=== PATIENT | female | born 1970 | race Caucasian/White ===

== ENCOUNTER 2016-10-06 18:45 | Emergency (ER) | payer MEDICARE, MEDICAID ==
[2016-10-06] MEDS ORDERED: KETOROLAC 60 MG/2 ML VIAL ONE (19:34)
--- NOTE | 2016-10-06 19:36 | ED Physician Documentation ---
History of Present Illness - Stated complaint Stated Complaint: back px,stomach px, leg px - Chief complaint Chief Complaint: General - History obtained from History obtained from: Patient - History of Present Illness Timing: Other (This is a 46-year-old woman who presents with bilateral flank pain and left leg pain for the last 5 days. She also reports insomnia, depression, no suicidal plan. She thinks it might be the invokana that is causing this, she's been on that for a couple of months. No other new medications. She denies fevers, chills. She has been losing weight but is intentional. She had chest pain the other night which is now gone. No vomiting or changes in bowel movements.) Review of Systems Constitutional: reports: Myalgias. denies: Fever, Chills Eyes: denies: Loss of vision, Decreased vision Ears: denies: Loss of hearing, Ear pain Nose: denies: Rhinorrhea / runny nose, Congestion Throat: denies: Sore throat Cardiac: denies: Palpitations, Pedal edema, Calf pain GI: denies: Nausea, Vomiting, Diarrhea PD PAST MEDICAL HISTORY - Past Medical History Cardiovascular: High cholesterol Respiratory: Asthma Neuro: Peripheral neuropathy Endocrine/Autoimmune: Type 2 diabetes Psych: Depression, Bipolar disorder Musculoskeletal: Other - Past Surgical History Past Surgical History: Yes General: Cholecystectomy /[employer]: section, Tubal ligation Derm: Skin cancer surgery - Present Medications Home Medications: Ambulatory Orders Medication Instructions Recorded Confirmed Cinnamon 200 mg PO DAILY 11/09/15 10/06/16 Gabapentin [Neurontin] 600 mg PO TID 11/09/15 10/06/16 Metformin HCl 1,000 mg PO TID 11/09/15 10/06/16 Canagliflozin [Invokana] 300 mg PO DAILY 10/06/16 10/06/16 Ketorolac [Toradol] 10 mg PO Q6H PRN #15 tablet 10/06/16 Simvastatin 40 mg PO DAILY 10/06/16 10/06/16 - Allergies Allergies/Adverse Reactions: Allergies Allergy/AdvReac Type Severity Reaction Status Date / Time peanut Allergy Anaphylaxis Verified 11/09/15 16:35 - Social History Does the pt smoke?: No Smoking Status: Former smoker Does the pt drink ETOH?: No Does the pt have substance abuse?: No - Immunizations Immunizations are current?: Yes PD ED PE NORMAL - Vitals Vital signs reviewed: Yes - General General: Alert and oriented X 3, No acute distress - HEENT HEENT: PERRL, EOMI - Neck Neck: Supple, no meningeal sign, No bony TTP - Cardiac Cardiac: RRR, No murmur - Respiratory Respiratory: No respiratory distress, Clear bilaterally - Abdomen Abdomen: Normal bowel sounds, Soft, Non tender - Back Back: Other (Some muscular tenderness of both flanks but no abdominal tenderness.The patient has equal and normal patellar and Achilles reflexes bilaterally. Normal sensation in all areas of the legs. Patient denies saddle anesthesia. Normal strength in flexion and extension at the ankles, knees and flexion of the hips.) - Derm Derm: Normal color, Warm and dry - Extremities Extremities: No deformity, No tenderness to palpate - Neuro Neuro: Alert and oriented X 3, Normal speech - Psych Psych: Normal mood, Normal affect Results - Vitals Vitals: Vital Signs - 24 hr 10/06/16 10/06/16 10/06/16 18:55 20:12 21:03 Temperature 36.4 C L 37.2 C 37.0 C Heart Rate 82 69 73 Respiratory 18 15 14 Rate Blood Pressure 124/83 H 103/61 127/73 O2 Saturation 100 96 99 Oxygen O2 Source Room air - Labs Labs: Laboratory Tests 10/06/16 10/06/16 10/06/16 20:04 20:04 20:26 WBC 8.9 RBC 5.02 Hgb 12.0 Hct 38.6 MCV 76.9 L MCH 23.9 L MCHC 31.0 L RDW 16.8 H Plt Count 233 MPV 9.6 Neut # 5.0 Lymph # 3.0 [place] # 0.6 Eos # 0.2 Baso # 0.1 Absolute Nucleated RBC 0.00 Nucleated RBCs 0.0 Sodium 139 Potassium 3.9 Chloride 103 Carbon Dioxide 27 Anion Gap 9.0 BUN 17 Creatinine 0.7 Estimated GFR (MDRD) 91 Glucose 169 H Calcium 9.0 Total Bilirubin 0.5 AST 19 ALT 14 Alkaline Phosphatase 23 L Total Creatine Kinase 33 Total Protein 7.6 Albumin 3.9 Globulin 3.7 Albumin/Globulin Ratio 1.1 Lipase 27 Urine Color YELLOW Urine Clarity CLEAR Urine pH 5.0 Ur Specific [place] 1.020 Urine Protein NEGATIVE Urine Glucose (UA) >=1000 H Urine Ketones NEGATIVE Urine Occult Blood TRACE-INTA Urine Nitrite NEGATIVE Urine Bilirubin NEGATIVE Urine Urobilinogen 0.2 (NORMAL) Ur Leukocyte Esterase NEGATIVE Ur Microscopic Review NOT INDICATED Urine Culture Comments NOT INDICATED Urine HCG, Qual NEGATIVE PD MEDICAL DECISION MAKING - ED course ED course: She presents with nonspecific seemingly muscular pain to both flanks and some sciatica-type symptoms on the left. Exam is benign. I suspect that she has muscular pain but she is also depressed without suicidal ideation and advised counseling for this. She felt much better after a Toradol shot. The patient and family were counseled as to the diagnosis and need for followup. I counseled the patient with regard to signs and symptoms that would necessitate an urgent reevaluation in the emergency department. They understand they are welcome to return at any time if worse or if not improving as expected. This document was made in part using voice recognition software. While efforts are made to proofread this document, sound alike and grammatical errors may occur. Departure - Departure Disposition: 01 Home, Self Care Clinical Impression: Myalgia Sciatica Qualifiers: Laterality: left Qualified Code(s): M54.32 - Sciatica, left side Condition: Good Record reviewed to determine appropriate education?: Yes Instructions: ED Sciatica, ED Acute Pain [facility] Prescriptions: Ketorolac [Toradol] 10 mg PO Q6H PRN #15 tablet PRN Reason: Pain Comments: Call your doctor to arrange a follow up appointment. Make the next available appointment. In the interim return anytime if worse or if new symptoms develop. Discharge Date/Time: 10/06/16 21:03
[2016-10-06] MEDS: KETOROLAC 60 MG/2 ML VIAL IM STA (19:41)
[2016-10-06 20:08] LABS: BASOPHILS # (AUTO) 0.1 10^3/uL (0.0-0.1); BASOPHILS % (AUTO) 0.6 %; EOSINOPHILS # (AUTO) 0.2 10^3/uL (0.0-0.7); EOSINOPHILS % (AUTO) 2.2 %; HCT - HEMATOCRIT 38.6 % (37.0-47.0); MEAN CORPUSCULAR HEMOGLOBIN 23.9 pg (27.0-31.0); MEAN CORPUSCULAR VOLUME 76.9 fL (81.0-99.0); MEAN PLATELET VOLUME 9.6 fL (7.9-10.8); MONOCYTES # (AUTO) 0.6 10^3/uL (0.0-1.0); MONOCYTES % (AUTO) 6.6 %; NEUTROPHILS % (AUTO) 56.6 %; RED BLOOD COUNT 5.02 10^6/uL (4.20-5.40); RED CELL DISTRIBUTION WIDTH 16.8 % (12.0-15.0); UNCORRECTED WHITE BLOOD COUNT 8.9 x10^3/uL; WHITE BLOOD COUNT 8.9 x10^3/uL (4.8-10.8)
[2016-10-06 20:18] LABS: ALBUMIN/GLOBULIN RATIO 1.1 (1.0-2.2); BILIRUBIN,TOTAL 0.5 mg/dL (0.2-1.0); CREATININE 0.7 mg/dL (0.4-1.0); POTASSIUM 3.9 mmol/L (3.5-5.0); TOTAL PROTEIN 7.6 g/dL (6.7-8.2)
[2016-10-06 20:41] LABS: BILIRUBIN,URINE NEGATIVE (NEGATIVE)
[2016-10-06 20:42] LABS: HCG UR QUAL NEGATIVE; UA CHARGE (STRIP ONLY) YES; UR CULTURE IF IND NOT INDICATED
[2016-10-06 21:04] VITALS: BP 127/73
== END 2016-10-06 21:03 | disposition home or self-care (01) ==
LOC: ED 18:45
DX: M79.1 Myalgia (principal); M54.32 Sciatica, left side; F32.9 Major depressive disorder, single episode, unspecified; G47.00 Insomnia, unspecified; J45.909 Unspecified asthma, uncomplicated; E11.42 Type 2 diabetes mellitus with diabetic polyneuropathy; Z79.84 Long term (current) use of oral hypoglycemic drugs; Z87.891 Personal history of nicotine dependence
CPT/HCPCS: 36415; 80053; 81001; 81003; 81025; 82550; 83690; 85025; 87086; 96372; 99283; 99284

== ENCOUNTER 2016-12-28 13:03 | Emergency (ER) | payer MEDICARE, MEDICAID ==
[2016-12-28] MEDS ORDERED: KETOROLAC 60 MG/2 ML VIAL IM STA (14:58)
[2016-12-28] MEDS ORDERED: KETOROLAC 60 MG/2 ML VIAL ONE (15:03)
== END 2016-12-28 15:13 | disposition home or self-care (01) ==
DX: M67.442 Ganglion, left hand (principal); M25.512 Pain in left shoulder; E78.00 Pure hypercholesterolemia, unspecified; J45.909 Unspecified asthma, uncomplicated; E11.42 Type 2 diabetes mellitus with diabetic polyneuropathy; Z79.84 Long term (current) use of oral hypoglycemic drugs; Z87.891 Personal history of nicotine dependence

== ENCOUNTER 2017-01-07 17:42 | Outpatient (CLI) | payer MEDICARE, MEDICAID | END 2017-01-07 17:43 | disposition home or self-care (01) | DX: M25.512 Pain in left shoulder (principal) ==

== ENCOUNTER 2017-04-02 10:12 | Emergency (ER) | payer MEDICARE, MEDICAID ==
[2017-04-02 11:30] VITALS: BP 120/86
--- NOTE | 2017-04-02 11:32 | XRAY Preliminary Report ---
Exam: XR Chest 2 View PA/LAT IMPRESSION: Negative 2-view chest radiography. [facility] SITE ID: [id number]
--- NOTE | 2017-04-02 11:35 | XRAY Report ---
EXAM: CHEST RADIOGRAPHY EXAM DATE: 04/02/2017 11:23 AM. CLINICAL HISTORY: Cough x 3 weeks. COMPARISON: None. TECHNIQUE: 2 views. FINDINGS: Lungs/Pleura: No focal opacities evident. No pleural effusion. No pneumothorax. Normal volumes. Mediastinum: Heart and mediastinal contours are unremarkable. Other: Surgical clips right upper quadrant IMPRESSION: Negative 2-view chest radiography. [facility] Referring Provider Line: [phone] SITE ID: [id number]
[2017-04-02] MEDS ORDERED: KETOROLAC 60 MG/2 ML VIAL IM STA (11:41)
[2017-04-02] MEDS ORDERED: DEXAMETHASONE 10 MG/ML VIAL PO STA (11:41)
--- NOTE | 2017-04-02 11:43 | ED Physician Documentation ---
PD HPI URI - Stated complaint Stated Complaint: CHEST COLD - Chief complaint Chief Complaint: Resp - History obtained from History obtained from: Patient, Family - History of Present Illness Timing - onset: How many weeks ago (3) Timing duration: Weeks (3) Timing details: Gradual onset, Still present Associated symptoms: Ear pain, Dry cough. No: Fever, Nasal congestion Improves by: Rest Worsened by: Activity Similar symptoms before: Diagnosis (OM and bronchitis) Recently seen: Other (She is preparring to have shoulder surgery next week.) - Additional information Additional information: 46-year-old female has had a cough for the past 3 weeks. She describes production of a small amount of sputum periodically but mostly a dry cough with some burning in the central chest. She has some pain along the lower ribs as well from coughing paroxysms. She also complains of some pain in her left ear with some muffled hearing. She has not had an exacerbation of her asthma associated with this. She has been doing everything she can to stay in good health as she has an anticipated surgery in 1 week on her left shoulder. Review of Systems Constitutional: denies: Fever Eyes: denies: Decreased vision Ears: reports: Ear pain Nose: reports: Rhinorrhea / runny nose Throat: denies: Sore throat Cardiac: denies: Chest pain / pressure Respiratory: reports: Cough. denies: Wheezing GI: denies: Vomiting PD PAST MEDICAL HISTORY - Past Medical History Past Medical History: Yes Cardiovascular: High cholesterol Respiratory: Asthma Neuro: Peripheral neuropathy Endocrine/Autoimmune: Type 2 diabetes Psych: Depression, Bipolar disorder Musculoskeletal: Other - Past Surgical History Past Surgical History: Yes General: Cholecystectomy, Other /SKI PATROL: section, Tubal ligation Derm: Skin cancer surgery - Present Medications Home Medications: Ambulatory Orders Medication Instructions Recorded Confirmed Gabapentin [Neurontin] 800 mg PO TID 11/09/15 04/02/17 Metformin HCl 1,000 mg PO BID 11/09/15 04/02/17 Canagliflozin [Invokana] 300 mg PO DAILY 10/06/16 04/02/17 Simvastatin 40 mg PO DAILY 10/06/16 04/02/17 Biotin 3,000 mg PO DAILY 12/28/16 04/02/17 Cholecalciferol (Vitamin D3) 5,000 mg PO DAILY 12/28/16 04/02/17 [Vitamin D3] Lamotrigine 25 mg PO DAILY 12/28/16 04/02/17 [place]-3/Dha/Epa/Fish Oil [Fish Oil 1,000 mg PO DAILY 12/28/16 04/02/17 1,000 mg Softgel] Azithromycin [Zithromax] 250 mg PO DAILY #6 tablet 04/02/17 Cyanocobalamin (Vitamin B-12) 1,000 mg PO DAILY 04/02/17 04/02/17 [Vitamin B-12] - Allergies Allergies/Adverse Reactions: Allergies Allergy/AdvReac Type Severity Reaction Status Date / Time peanut Allergy Anaphylaxis Verified 04/02/17 10:27 - Social History Does the pt smoke?: No Smoking Status: Former smoker Does the pt drink ETOH?: No Does the pt have substance abuse?: No - Immunizations Immunizations are current?: Yes - POLST Patient has POLST: No PD ED PE NORMAL - Vitals Vital signs reviewed: Yes (Normal) - General General: No acute distress, Well developed/nourished - HEENT HEENT: Atraumatic, PERRL, EOMI, Other (The left TM is inflamed in the addict with retained landmarks the right TM is not inflamed. The pharynx is with mild inflammation along the left tonsillar pillar.) - Neck Neck: Supple, no meningeal sign, No bony TTP - Cardiac Cardiac: RRR, No murmur - Respiratory Respiratory: No respiratory distress, Clear bilaterally - Abdomen Abdomen: Soft, Non tender - Derm Derm: Normal color, Warm and dry, No rash - Extremities Extremities: No deformity, No edema - Neuro Neuro: Alert and oriented X 3, No motor deficit, No sensory deficit, Normal speech - Psych Psych: Normal mood, Normal affect Results - Vitals Vitals: Vital Signs - 24 hr 04/02/17 04/02/17 10:24 11:29 Temperature 35.7 C L 36.4 C L Heart Rate 81 87 Respiratory 12 18 Rate Blood Pressure 111/78 120/86 H O2 Saturation 98 98 Oxygen O2 Source Room air - Rads (name of study) 2 view chest Radiology: Prelim report reviewed (Impression: Negative two-view chest radiography.), EMP read indepedently, See rad report PD MEDICAL DECISION MAKING - ED course Complexity details: considered differential, d/w patient ED course: 46-year-old female with cough and left ear pain has coughing paroxysms and left shoulder pain she requests a shot of Toradol for her left shoulder pain she requests Dilaudid as well and I have refused to give her the Dilaudid. She did receive the Toradol and we have given her dexamethasone 10 mg orally for treatment of the otitis and I have discussed with her that this will increase her sugars. On examination the. Patient appears to have otitis media in the left ear this does not appear to be affecting her asthma she is placed on a course of azithromycin. Departure - Departure Disposition: 01 Home, Self Care Clinical Impression: Otitis media Qualifiers: Otitis media type: suppurative Laterality: left Chronicity: acute Recurrence: not specified as recurrent Spontaneous tympanic membrane rupture: without spontaneous rupture Qualified Code(s): H66.002 - Acute suppurative otitis media without spontaneous rupture of ear drum, left ear Condition: Stable Instructions: ED Otitis Media Acute Adult Follow-Up: Ema Oshea PA-C [Primary Care Provider] - Prescriptions: Azithromycin [Zithromax] 250 mg PO DAILY #6 tablet
[2017-04-02] MEDS ORDERED: DEXAMETHASONE 10 MG/ML VIAL ONE (11:46)
[2017-04-02] MEDS ORDERED: KETOROLAC 60 MG/2 ML VIAL ONE (11:46)
== END 2017-04-02 12:20 | disposition home or self-care (01) ==
LOC: ED 10:12
DX: H66.002 Acute suppurative otitis media without spontaneous rupture of ear drum, left ear (principal); E78.5 Hyperlipidemia, unspecified; J45.909 Unspecified asthma, uncomplicated; E11.42 Type 2 diabetes mellitus with diabetic polyneuropathy; Z79.84 Long term (current) use of oral hypoglycemic drugs; Z87.891 Personal history of nicotine dependence
CPT/HCPCS: 71020; 96372; 99283

== ENCOUNTER 2017-04-13 11:41 | Emergency (ER) | payer MEDICARE, MEDICAID ==
[2017-04-13] MEDS ORDERED: ALBUTEROL NEB 2.5 MG/3 ML INH STA (12:27)
[2017-04-13] MEDS ORDERED: FLUCONAZOLE 100 MG TABLET PO STA (12:27)
[2017-04-13] MEDS ORDERED: predniSONE 20 MG TABLET PO STA (12:27)
[2017-04-13] MEDS ORDERED: BENZONATATE 100 MG CAPSULE PO STA (12:28)
--- NOTE | 2017-04-13 12:30 | ED Physician Documentation ---
History of Present Illness - Stated complaint Stated Complaint: COUGH,FEMALE - Chief complaint Chief Complaint: Resp - History obtained from History obtained from: Patient, Family - History of Present Illness Timing: How many weeks ago (4) Pain level max: 5 Pain level now: 4 Improved by: nothing Worsened by: nothing - Additonal information Additional information: Patient is a 46-year-old female who presents to the emergency department with a cough for the past 4 weeks. No fevers. States that she is occasionally bringing up green sputum. Was recently placed on azithromycin and states is now developed a yeast infection. This is common for her after antibiotics. She has not had any diarrhea. No abdominal pain. She also had a recent left shoulder surgery, approximately 3 days ago. She states that she is supposed to change the bandages, but does not know what to change them with or what to place on the wounds. States pain is well controlled with her oxycodone at home. Review of Systems Ten Systems: 10 systems reviewed and negative Constitutional: denies: Fever, Chills Ears: denies: Ear pain Nose: reports: Rhinorrhea / runny nose, Congestion Throat: denies: Sore throat Respiratory: reports: Dyspnea, Cough, Wheezing (out of her inhaler) GI: denies: Abdominal Pain, Nausea, Vomiting, Diarrhea Skin: denies: Rash Musculoskeletal: denies: Neck pain, Back pain Neurologic: denies: Headache PD PAST MEDICAL HISTORY - Past Medical History Cardiovascular: High cholesterol Respiratory: Asthma Neuro: Peripheral neuropathy Endocrine/Autoimmune: Type 2 diabetes Psych: Depression, Bipolar disorder Musculoskeletal: Other - Past Surgical History Past Surgical History: Yes General: Cholecystectomy, 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, Tubal ligation Derm: Skin cancer surgery - Present Medications Home Medications: Ambulatory Orders Medication Instructions Recorded Confirmed Gabapentin [Neurontin] 800 mg PO TID 11/09/15 04/13/17 Metformin HCl 1,000 mg PO BID 11/09/15 04/13/17 Canagliflozin [Invokana] 300 mg PO DAILY 10/06/16 04/13/17 Simvastatin 40 mg PO DAILY 10/06/16 04/13/17 Biotin 3,000 mg PO DAILY 12/28/16 04/13/17 Cholecalciferol (Vitamin D3) 5,000 mg PO DAILY 12/28/16 04/13/17 [Vitamin D3] Lamotrigine 25 mg PO DAILY 12/28/16 04/13/17 [place]-3/Dha/Epa/Fish Oil [Fish Oil 1,000 mg PO DAILY 12/28/16 04/13/17 1,000 mg Softgel] Cyanocobalamin (Vitamin B-12) 1,000 mg PO DAILY 04/02/17 04/13/17 [Vitamin B-12] Albuterol Sulf [Ventolin Hfa 2 puffs INH Q4HR PRN #1 inhaler 04/13/17 Inhaler] Benzonatate [Tessalon Perle] 100 - 200 mg PO TID PRN #30 capsule 04/13/17 Cetirizine HCl/Pseudoephedrine 1 each PO BID PRN #30 tab.er.12h 04/13/17 [Zyrtec-D Tablet] Prednisone 40 mg PO DAILY #10 tablet 04/13/17 oxyCODONE ER [OxyCONTIN] 5 mg PO DAILY 04/13/17 04/13/17 - Allergies Allergies/Adverse Reactions: Allergies Allergy/AdvReac Type Severity Reaction Status Date / Time peanut Allergy Anaphylaxis Verified 04/13/17 11:57 - Social History Does the pt smoke?: No Smoking Status: Former smoker Does the pt drink ETOH?: No Does the pt have substance abuse?: No - Immunizations Immunizations are current?: Yes - POLST Patient has POLST: No PD ED PE NORMAL - Vitals Vital signs reviewed: Yes - General General: Alert and oriented X 3, No acute distress, Well developed/nourished - HEENT HEENT: Ears normal, Moist mucous membranes, Pharynx benign - Neck Neck: Supple, no meningeal sign, No adenopathy - Cardiac Cardiac: RRR - Respiratory Respiratory: No respiratory distress, Other (Mildly diminished breath sounds bilaterally) - Abdomen Abdomen: Soft, Non tender, Non distended - Derm Derm: Warm and dry - Extremities Extremities: Other (Sterile bandages in place over the left shoulder.) - Neuro Neuro: Alert and oriented X 3 - Psych Psych: Normal mood, Normal affect Results - Vitals Vitals: Vital Signs - 24 hr 04/13/17 04/13/17 04/13/17 11:43 12:45 13:18 Temperature 36.1 C L 36.4 C L Heart Rate 98 96 92 Respiratory 18 18 18 Rate Blood Pressure 120/79 112/78 O2 Saturation 98 92 Oxygen O2 Source Room air PD MEDICAL DECISION MAKING - ED course Complexity details: reviewed old records, reviewed results, re-evaluated patient , considered differential, d/w patient, d/w family ED course: Patient is a 46-year-old female who presents to the emergency department with what appears to be a viral upper respiratory infection. She feels better after albuterol treatment. Did run out of her inhaler at home and will refill this for her. We will also place on steroids and decongestants. She is well- appearing, nontoxic. Afebrile. No evidence of pneumonia. Had a negative chest x-ray last week. No evidence of pulmonary embolus. We will have her follow-up with her surgeon to find out how he wants her dressings changed. Patient counseled regarding signs and symptoms for which I believe and urgent re -evaluation would be necessary. Patient with good understanding of and agreement to plan and is comfortable going home at this time This document was made in part using voice recognition software. While efforts are made to proofread this document, sound alike and grammatical errors may occur. Departure - Departure Disposition: 01 Home, Self Care Clinical Impression: Vaginal yeast infection Upper respiratory tract infection Qualifiers: URI type: unspecified viral URI Qualified Code(s): J06.9 - Acute upper respiratory infection, unspecified Condition: Good Instructions: ED Viral Syndrome Follow-Up: Ema Oshea PA-C [Primary Care Provider] - Within 1 week Prescriptions: Albuterol Sulf [Ventolin Hfa Inhaler] 2 puffs INH Q4HR PRN #1 inhaler PRN Reason: Wheezing Prednisone 40 mg PO DAILY #10 tablet Benzonatate [Tessalon Perle] 100 - 200 mg PO TID PRN #30 capsule PRN Reason: Cough Cetirizine HCl/Pseudoephedrine [Zyrtec-D Tablet] 1 each PO BID PRN #30 tab.er.12h PRN Reason: Nasal Congestion Comments: Return if you worsen. Make sure to use the inhaler and steroids at home as this will help her coughing. This should improve over the next 1-2 weeks. Discharge Date/Time: 04/13/17 13:18
[2017-04-13] MEDS ORDERED: FLUCONAZOLE 100 MG TABLET ONE (12:34)
[2017-04-13] MEDS ORDERED: predniSONE 20 MG TABLET ONE (12:34)
[2017-04-13] MEDS ORDERED: BENZONATATE 100 MG CAPSULE PO ONE (12:34)
[2017-04-13] MEDS ORDERED: ALBUTEROL NEB 2.5 MG/3 ML INH ONE (12:39)
[2017-04-13 13:19] VITALS: BP 112/78
== END 2017-04-13 13:18 | disposition home or self-care (01) ==
LOC: ED 11:41
DX: B37.3 Candidiasis of vulva and vagina (principal); J06.9 Acute upper respiratory infection, unspecified; E78.00 Pure hypercholesterolemia, unspecified; J45.909 Unspecified asthma, uncomplicated; E11.42 Type 2 diabetes mellitus with diabetic polyneuropathy; Z79.84 Long term (current) use of oral hypoglycemic drugs; Z87.891 Personal history of nicotine dependence
CPT/HCPCS: 94640; 99282; 99283; A9270; J7512; J7613

== ENCOUNTER 2017-06-25 12:08 | Emergency (ER) | payer MEDICARE, MEDICAID ==
[2017-06-25 12:40] LABS: RAPID STREP SCREEN REAGENT QC YELLOW (YELLOW)
[2017-06-25] MEDS ORDERED: KETOROLAC 60 MG/2 ML VIAL IM STA (13:07)
[2017-06-25] MEDS ORDERED: DEXAMETHASONE 10 MG/ML VIAL PO STA (13:07)
--- NOTE | 2017-06-25 13:10 | ED Physician Documentation ---
PD HPI HEENT - Stated complaint Stated Complaint: SORE THROAT, BODY PAIN - Chief complaint Chief Complaint: General - History obtained from History obtained from: Patient - History of Present Illness Timing - onset: How many days ago (2) Timing - duration: Days (2) Timing - details: Gradual onset, Still present Location: Throat Improves: Medication Worsens: Swalllowing Associated symptoms: Fever, Congestion, Swollen nodes, Headache, Cough Similar symptoms before: Has not had sx before Recently seen: Not recently seen - Additional information Additional information: 47-year-old female with history of type 2 diabetes has developed a sore throat that started about 2 days ago. She has had a a headache and abdominal pain associated with this as well and aches and pains all over her body. Review of Systems Constitutional: reports: Chills, Myalgias, Fatigue, Sweats. denies: Fever Eyes: denies: Decreased vision Ears: reports: Ear pain Nose: reports: Rhinorrhea / runny nose, Congestion Throat: reports: Sore throat Cardiac: denies: Chest pain / pressure, Palpitations Respiratory: reports: Cough. denies: Dyspnea GI: reports: Abdominal Pain. denies: Nausea, Vomiting : denies: Dysuria PD PAST MEDICAL HISTORY - Past Medical History Past Medical History: Yes Cardiovascular: High cholesterol Respiratory: Asthma Neuro: Peripheral neuropathy Endocrine/Autoimmune: Type 2 diabetes Psych: Depression, Bipolar disorder Musculoskeletal: Other - Past Surgical History Past Surgical History: Yes General: Cholecystectomy, Other /[employer]: section, Tubal ligation Derm: Skin cancer surgery - Present Medications Home Medications: Ambulatory Orders Medication Instructions Recorded Confirmed Gabapentin [Neurontin] 800 mg PO TID 11/09/15 06/25/17 Metformin HCl 1,000 mg PO BID 11/09/15 06/25/17 Canagliflozin [Invokana] 300 mg PO DAILY 10/06/16 06/25/17 Simvastatin 40 mg PO DAILY 10/06/16 06/25/17 Biotin 3,000 mg PO DAILY 12/28/16 06/25/17 Cholecalciferol (Vitamin D3) 5,000 mg PO DAILY 12/28/16 06/25/17 [Vitamin D3] Lamotrigine 25 mg PO DAILY 12/28/16 06/25/17 [place]-3/Dha/Epa/Fish Oil [Fish Oil 1,000 mg PO DAILY 12/28/16 06/25/17 1,000 mg Softgel] Cyanocobalamin (Vitamin B-12) 1,000 mg PO DAILY 04/02/17 06/25/17 [Vitamin B-12] Cetirizine HCl/Pseudoephedrine 1 each PO BID PRN #30 tab.er.12h 04/13/17 [Zyrtec-D Tablet] oxyCODONE ER [OxyCONTIN] 5 mg PO DAILY 04/13/17 06/25/17 Amoxicillin 875 mg PO BID #20 tablet 06/25/17 - Allergies Allergies/Adverse Reactions: Allergies Allergy/AdvReac Type Severity Reaction Status Date / Time peanut Allergy Anaphylaxis Verified 04/13/17 11:57 - Social History Does the pt smoke?: No Smoking Status: Never smoker Does the pt drink ETOH?: No Does the pt have substance abuse?: No - Immunizations Immunizations are current?: Yes - POLST Patient has POLST: No PD ED PE NORMAL - Vitals Vital signs reviewed: Yes (Tachycardic and hypertensive) - General General: No acute distress, Well developed/nourished - HEENT HEENT: Atraumatic, PERRL, EOMI, Other (Mild inflammation the left TM the right is clear.The pharynx is with 3+ tonsil on the right 2+ on the left both with exudate) - Neck Neck: Supple, no meningeal sign, No bony TTP - Cardiac Cardiac: RRR, No murmur - Respiratory Respiratory: No respiratory distress, Clear bilaterally - Abdomen Abdomen: Soft, Non tender - Back Back: No CVA TTP, No spinal TTP - Derm Derm: Normal color, Warm and dry, No rash - Extremities Extremities: No deformity, No edema - Neuro Neuro: No motor deficit, No sensory deficit - Psych Psych: Normal mood, Normal affect Results - Vitals Vitals: Vital Signs - 24 hr 06/25/17 12:10 Temperature 36.9 C Heart Rate 116 H Respiratory 18 Rate Blood Pressure 127/89 H O2 Saturation 100 Oxygen O2 Source Room air - Labs Labs: Laboratory Tests 06/25/17 12:28 Group A Strep Rapid POSITIVE H PD MEDICAL DECISION MAKING - ED course Complexity details: reviewed results, re-evaluated patient, considered differential, d/w patient ED course: 47-year-old female with a sore throat for 2 days has a positive rapid strep. She does appear on physical examination and by history to have strep as well. Here in the emergency department she is given dexamethasone 10 mg orally and Toradol [address] IM[address] We will place her on some amoxicillin. She does talk about her hair falling out and feeling that she may have cancer.She also indicates a lot of stress at home. Departure - Departure Disposition: 01 Home, Self Care Clinical Impression: Strep pharyngitis Condition: Stable Instructions: ED Strep Pharyngitis Conf Follow-Up: Ema Oshea PA-C [Primary Care Provider] - Prescriptions: Amoxicillin 875 mg PO BID #20 tablet
[2017-06-25] MEDS ORDERED: KETOROLAC 60 MG/2 ML VIAL ONE (13:27)
[2017-06-25] MEDS ORDERED: DEXAMETHASONE 10 MG/ML VIAL ONE (13:27)
[2017-06-25] MEDS ORDERED: CHERRY SYRUP 10 ML UDC PO ONE (13:27)
[2017-06-25 13:34] VITALS: BP 121/68
== END 2017-06-25 13:47 | disposition home or self-care (01) ==
LOC: ED 12:08
DX: J02.0 Streptococcal pharyngitis (principal); E11.42 Type 2 diabetes mellitus with diabetic polyneuropathy; Z79.84 Long term (current) use of oral hypoglycemic drugs; E78.00 Pure hypercholesterolemia, unspecified; J45.909 Unspecified asthma, uncomplicated; Z85.828 Personal history of other malignant neoplasm of skin
CPT/HCPCS: 87430; 96372; 99283; A9270

== ENCOUNTER 2017-09-13 15:39 | Emergency (ER) | payer MEDICARE, MEDICAID ==
[2017-09-13] MEDS ORDERED: MAG HYDROX/AL HYDROX/SIMETH 30 ML UDC PO STA (16:06)
[2017-09-13] MEDS ORDERED: LIDOCAINE VISCOUS 2% 15 ML UDC MM STA (16:07)
[2017-09-13] MEDS ORDERED: PHENobarb/HYOSCY/ATROPINE/SCOP 5 ML SYRINGE PO STA (16:07)
--- NOTE | 2017-09-13 16:11 | ED Physician Documentation ---
PD HPI CHEST PAIN - Stated complaint Stated Complaint: CP - Chief complaint Chief Complaint: Cardiac - History obtained from History obtained from: Patient - History of Present Illness Timing - onset: Today Timing - onset during: Rest Timing - details: Still present, Waxing and waning Quality: Dull Location: Substernal Similar symptoms before: No diagnosis (History of similar symptoms "years ago" that resolved spontaneously.) - Treatment prior to arrival Treatment prior to arrival: Tylenol Extra Strength, without relief. - Additional information Additional information: The patient is a 47-year-old female who complains of feeling "crummy" since she awoke this morning. She reports substernal chest discomfort that has persisted throughout the day. She denies nausea, vomiting, shortness of breath, or diaphoresis. She denies cough or fever. She denies dysuria. Her past medical history is significant for diabetes, for which she takes metformin. She has a history of similar symptoms a few years ago, and it resolved spontaneously at that time. She reports being under significant stress recently, citing that her 24-year-old daughter has been diagnosed with cervical cancer. In addition she is trying to breakup with her boyfriend, and is not certain how to go about it. Review of Systems Constitutional: denies: Fever, Sweats Ears: denies: Tinnitus/ringing Nose: denies: Congestion Throat: denies: Sore throat Cardiac: reports: Chest pain / pressure. 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, Tubal ligation Derm: Skin cancer surgery - Present Medications Home Medications: Ambulatory Orders Medication Instructions Recorded Confirmed Gabapentin [Neurontin] 800 mg PO TID 11/09/15 09/13/17 Metformin HCl 1,000 mg PO BID 11/09/15 09/13/17 Canagliflozin [Invokana] 300 mg PO DAILY 10/06/16 09/13/17 Simvastatin 40 mg PO DAILY 10/06/16 09/13/17 Cholecalciferol (Vitamin D3) 5,000 mg PO DAILY 12/28/16 09/13/17 [Vitamin D3] lamoTRIgine [Lamotrigine] 200 mg PO DAILY 12/28/16 09/13/17 ARIPiprazole [Aripiprazole] 10 mg PO DAILY PM 09/13/17 09/13/17 Canagliflozin [Invokana] 300 mg PO DAILY 09/13/17 09/13/17 Multivitamin [Multivitamins] 1 tab PO DAILY 09/13/17 09/13/17 Prazosin HCl 2 mg PO DAILY 09/13/17 09/13/17 raNITIdine [Zantac] 150 mg PO BID #30 tablet 09/13/17 - Allergies Allergies/Adverse Reactions: Allergies Allergy/AdvReac Type Severity Reaction Status Date / Time peanut Allergy Anaphylaxis Verified 04/13/17 11:57 - Social History Does the pt smoke?: No Smoking Status: Never smoker Does the pt drink ETOH?: No Does the pt have substance abuse?: No - Immunizations Immunizations are current?: Yes - POLST Patient has POLST: No PD ED PE NORMAL - Vitals Vital signs reviewed: Yes (Borderline hypertension initially.) - General General: Alert and oriented X 3, Well developed/nourished, Other (Overweight.) - HEENT HEENT: Atraumatic, EOMI, Pharynx benign - Neck Neck: No adenopathy, No JVD - Cardiac Cardiac: RRR, No murmur - Respiratory Respiratory: No respiratory distress, Clear bilaterally, Other (No chest wall tenderness to palpation.) - Abdomen Abdomen: Soft, No organomegaly, Other (Mild tenderness to palpation in the epigastric region, without rebound tenderness or guarding.) - Back Back: No CVA TTP - Derm Derm: No rash - Extremities Extremities: No edema, No calf tenderness / cord - Neuro Neuro: Alert and oriented X 3, No motor deficit, Normal speech Results - Vitals Vitals: Oxygen O2 Source Room air - EKG (time done) 15:49 Rate: Rate (enter#) (80) Rhythm: NSR QRS: Poor R wave progression, Low voltage Ischemia: Non specific changes Compare to prior EKG: Unchanged from prior EKG Computer interpretation: Agree with computer - Labs Labs: Laboratory Tests 09/13/17 16:14 Troponin I < 0.04 PD MEDICAL DECISION MAKING - ED course Complexity details: reviewed results, re-evaluated patient, considered differential, d/w patient ED course: The patient's presentation is most consistent with gastroesophageal reflux disease. I doubt cardiac ischemia or pulmonary etiology. Her electrocardiogram and troponin level are normal. Treatment in the emergency department included administration of GI cocktail, which completely relieved her symptoms. 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 She is being discharged with prescription for ranitidine. Departure - Departure Disposition: Home, Self Care Clinical Impression: GERD (gastroesophageal reflux disease) Qualifiers: Esophagitis presence: esophagitis presence not specified Qualified Code(s): K21.9 - Gastro-esophageal reflux disease without esophagitis Condition: Stable Instructions: ED GERD Follow-Up: Ema Oshea PA-C [Primary Care Provider] - Prescriptions: raNITIdine [Zantac] 150 mg PO BID #30 tablet Comments: Minimize coffee, gary, and alcohol. Take ranitidine twice daily as prescribed. You can drink liquid antacid, such as Maalox or Mylanta, if you develop recurrent symptoms. Follow up with your primary physician within 2 weeks. Call to schedule an appointment. Return to the emergency department if you develop increasing pain, shortness of breath, persistent vomiting, or otherwise worsening symptoms. Discharge Date/Time: 09/13/17 17:22
[2017-09-13 17:24] VITALS: BP 117/62
== END 2017-09-13 17:22 | disposition home or self-care (01) ==
LOC: ED 15:39
DX: K21.9 Gastro-esophageal reflux disease without esophagitis (principal); E78.00 Pure hypercholesterolemia, unspecified; E11.42 Type 2 diabetes mellitus with diabetic polyneuropathy; Z79.84 Long term (current) use of oral hypoglycemic drugs
CPT/HCPCS: 36415; 84484; 93005; 99283; 99285; A9270

== ENCOUNTER 2018-01-26 13:39 | Emergency (ER) | payer MEDICARE, MEDICAID ==
--- NOTE | 2018-01-26 14:54 | ED Physician Documentation ---
PD HPI UPPER EXT INJURY - Stated complaint Stated Complaint: NECK AND LT ARM PX - Chief complaint Chief Complaint: Ext Problem - History obtained from History obtained from: Patient - History of Present Illness Location: Left, Shoulder, Arm Type of injury: Other (she had prior shoulder scope 2016 and still has pain in it often. Worse the past few weeks. Has not been back to the surgeon. Getting PT for shoulder. Pain now to left side of neck and upper arm. Hurts for lifting. 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 Derm: Skin cancer surgery - Present Medications Home Medications: Ambulatory Orders Medication Instructions Recorded Confirmed Gabapentin [Neurontin] 800 mg PO TID 11/09/15 09/13/17 Metformin HCl 1,000 mg PO BID 11/09/15 09/13/17 Canagliflozin [Invokana] 300 mg PO DAILY 10/06/16 09/13/17 Simvastatin 40 mg PO DAILY 10/06/16 09/13/17 Cholecalciferol (Vitamin D3) 5,000 mg PO DAILY 12/28/16 09/13/17 [Vitamin D3] lamoTRIgine [Lamotrigine] 200 mg PO DAILY 12/28/16 09/13/17 ARIPiprazole [Aripiprazole] 10 mg PO DAILY PM 09/13/17 09/13/17 Canagliflozin [Invokana] 300 mg PO DAILY 09/13/17 09/13/17 Multivitamin [Multivitamins] 1 tab PO DAILY 09/13/17 09/13/17 Prazosin HCl 2 mg PO DAILY 09/13/17 09/13/17 Dexamethasone [Decadron] 4 mg PO DAILY #5 tablet 01/26/18 Methocarbamol [Robaxin] 500 mg PO Q6H PRN #25 tablet 01/26/18 Tramadol HCl 50 mg PO Q6H PRN #25 tablet 01/26/18 - Allergies Allergies/Adverse Reactions: Allergies Allergy/AdvReac Type Severity Reaction Status Date / Time peanut Allergy Anaphylaxis Verified 04/13/17 11:57 - Social History Does the pt smoke?: No Smoking Status: Never smoker Does the pt drink ETOH?: No Does the pt have substance abuse?: No - Immunizations Immunizations are current?: Yes - POLST Patient has POLST: No PD ED PE NORMAL - General General: Alert and oriented X 3, Well developed/nourished - Neck Neck: Supple, no meningeal sign, No bony TTP, No adenopathy, Other (some tenderness laterally at trapezius but then more to the suprascapular area. ) - Cardiac Cardiac: RRR, No murmur - Respiratory Respiratory: Clear bilaterally - Derm Derm: Normal color, Warm and dry - Extremities Extremities: No tenderness to palpate, Normal ROM s pain, Other (shoulder tender laterally and in suprascapular area. No rash nor redness. Some tender upper arm, but not focaly at biceps head per se. ) Results - Vitals Vitals: Oxygen O2 Source Room air PD MEDICAL DECISION MAKING - ED course Complexity details: considered differential (seems muscular for shoulder girdle muscles and presumed from scar tissue perhaps and inflammation. Does not seem biceps head itself. ), d/w patient Departure - Departure Disposition: 01 Home, Self Care Clinical Impression: Left shoulder tendonitis Condition: Stable Record reviewed to determine appropriate education?: Yes Follow-Up: Ema Oshea PA-C [Primary Care Provider] - Wong Kirby MD [Physician No Access] - Prescriptions: Dexamethasone [Decadron] 4 mg PO DAILY #5 tablet Methocarbamol [Robaxin] 500 mg PO Q6H PRN #25 tablet PRN Reason: Spasms Tramadol HCl 50 mg PO Q6H PRN #25 tablet PRN Reason: Pain Comments: Continue current medications. Continue the physical therapy on the shoulder. Contact Dr. Timmons for an appointment about the shoulder since it has been bothering so long. Use Decadron steroid daily for 5 more days. Robaxin muscle relaxant if needed for stiffness through the neck and shoulder. Add tramadol if needed for pain. Follow-up in the next week or so. Discharge Date/Time: 01/26/18 16:27
[2018-01-26] MEDS ORDERED: METHOCARBAMOL 500 MG TABLET PO STA (15:35)
[2018-01-26] MEDS ORDERED: DEXAMETHASONE 10 MG/ML VIAL PO STA (15:35)
[2018-01-26] MEDS ORDERED: traMADol 50 MG TABLET PO STA (15:35)
[2018-01-26 16:09] VITALS: BP 113/61
== END 2018-01-26 16:27 | disposition home or self-care (01) ==
LOC: ED 13:39
DX: M75.91 Shoulder lesion, unspecified, right shoulder (principal); E11.9 Type 2 diabetes mellitus without complications; E78.00 Pure hypercholesterolemia, unspecified; Z79.84 Long term (current) use of oral hypoglycemic drugs
CPT/HCPCS: 99283; A9270

== ENCOUNTER 2018-09-09 10:58 | Outpatient (CLI) | payer MEDICARE, MEDICAID ==
[2018-09-09 11:15] LABS: HGB - HEMOGLOBIN 12.5 g/dL (12.0-16.0); MEAN CORPUSCULAR HEMOGLOBIN 26.4 pg (27.0-31.0); MEAN CORPUSCULAR VOLUME 80.1 fL (81.0-99.0); MEAN PLATELET VOLUME 9.2 fL (7.9-10.8); RED BLOOD COUNT 4.72 10^6/uL (4.20-5.40); RED CELL DISTRIBUTION WIDTH 18.5 % (12.0-15.0); WHITE BLOOD COUNT 7.3 x10^3/uL (4.8-10.8)
[2018-09-09 11:25] LABS: CALCIUM 9.4 mg/dL (8.5-10.3); CREATININE 0.7 mg/dL (0.4-1.0)
[2018-09-09 12:32] LABS: HB2 TOTAL 13.1 g/dL; HEMOGLOBIN A1C 0.59 g/dL; HEMOGLOBIN A1C % 6.3 % (4.6-6.2)
== END 2018-09-09 10:59 | disposition home or self-care (01) ==
LOC: LAB 10:58
PROVIDERS: ATTEND Orthopaedic Surgery Orthopaedic Surgery of the Spine
DX: Z01.812 Encounter for preprocedural laboratory examination (principal); R73.9 Hyperglycemia, unspecified
CPT/HCPCS: 36415; 80048; 83036; 85027; 93005

== ENCOUNTER 2019-06-09 20:18 | Emergency (ER) | payer MEDICARE, MEDICAID ==
[2019-06-09] MEDS ORDERED: CYCLOBENZAPRINE 10 MG TABLET PO STA (20:57)
--- NOTE | 2019-06-09 20:58 | ED Physician Documentation ---
PD HPI ABD PAIN - Stated complaint Stated Complaint: LEFT SIDE/BACK PAIN - Chief complaint Chief Complaint: Abd Pain - History obtained from History obtained from: Patient - History of Present Illness Timing - onset: Other (For the last 6 days she has had left-sided low back pain. It is not radiating. It is much worse if she bends over. It is not associate with urinary frequency, dysuria, or hematuria. It does not radiate into the legs. No weakness, numbness, tingling, saddle anesthesia. She is a type II diabetic and has been uncontrolled lately with blood sugars usually in the 200s. 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 Derm: Skin cancer surgery - Present Medications Home Medications: Ambulatory Orders Medication Instructions Recorded Confirmed Gabapentin [Neurontin] 800 mg PO TID 11/09/15 09/13/17 Metformin HCl 1,000 mg PO BID 11/09/15 09/13/17 Canagliflozin [Invokana] 300 mg PO DAILY 10/06/16 09/13/17 Simvastatin 40 mg PO DAILY 10/06/16 09/13/17 Cholecalciferol (Vitamin D3) 5,000 mg PO DAILY 12/28/16 09/13/17 [Vitamin D3] lamoTRIgine [Lamotrigine] 200 mg PO DAILY 12/28/16 09/13/17 ARIPiprazole [Aripiprazole] 10 mg PO DAILY PM 09/13/17 09/13/17 Canagliflozin [Invokana] 300 mg PO DAILY 09/13/17 09/13/17 Multivitamin [Multivitamins] 1 tab PO DAILY 09/13/17 09/13/17 Prazosin HCl 2 mg PO DAILY 09/13/17 09/13/17 Methocarbamol [Robaxin] 500 mg PO Q6H PRN #25 tablet 01/26/18 Tramadol HCl 50 mg PO Q6H PRN #25 tablet 01/26/18 dexAMETHasone [Decadron] 4 mg PO DAILY #5 tablet 01/26/18 Cyclobenzaprine [Flexeril] 10 mg PO TID PRN #20 tablet 06/09/19 - Allergies Allergies/Adverse Reactions: Allergies Allergy/AdvReac Type Severity Reaction Status Date / Time peanut Allergy Anaphylaxis Verified 06/09/19 20:23 - Social History Does the pt smoke?: No Smoking Status: Never smoker Does the pt drink ETOH?: No Does the pt have substance abuse?: No - Immunizations Immunizations are current?: Yes - POLST Patient has POLST: No PD ED PE NORMAL - Vitals Vital signs reviewed: Yes - General General: Alert and oriented X 3, No acute distress - Abdomen Abdomen: Normal bowel sounds, Soft, Non tender - Back Back: No spinal TTP, Other (No midline spinal tenderness, she is tender over the left paralumbar musculature, winces with motion. The patient has equal and normal Achilles and patellar reflexes bilaterally. Normal sensation in all areas of the legs. Patient denies saddle anesthesia. Normal strength in flexion-extension at the ankles, knees, and flexion of the hips.) - Neuro Neuro: Alert and oriented X 3, Normal speech Results - Vitals Vitals: Vital Signs - 24 hr 06/09/19 20:23 Temperature 36.8 C Heart Rate 80 Respiratory 16 Rate Blood Pressure 134/84 H O2 Saturation 98 Oxygen O2 Source Room air - Labs Labs: Laboratory Tests 06/09/19 06/09/19 06/09/19 21:08 21:08 21:40 WBC 8.6 RBC 4.62 Hgb 12.7 Hct 40.6 MCV 87.9 MCH 27.5 MCHC 31.3 L RDW 14.7 Plt Count 223 MPV 11.6 H Neut # (Auto) 4.5 Lymph # (Auto) 3.1 [place] # (Auto) 0.6 Eos # (Auto) 0.3 Baso # (Auto) 0.1 Absolute Nucleated RBC 0.00 Nucleated RBC % 0.0 Sodium 142 Potassium 4.5 Chloride 101 Carbon Dioxide 30 Anion Gap 11.0 BUN 15 Creatinine 0.8 Estimated GFR (MDRD) 77 L Glucose 125 H Calcium 9.3 Total Bilirubin 0.5 AST 19 ALT 12 Alkaline Phosphatase 23 L Total Protein 7.8 Albumin 4.0 Globulin 3.8 Albumin/Globulin Ratio 1.1 Lipase 30 Urine Color YELLOW Urine Clarity HAZY Urine pH 6.0 Ur Specific [place] >=1.030 H Urine Protein TRACE Urine Glucose (UA) NEGATIVE Urine Ketones 15 H Urine Occult Blood LARGE H Urine Nitrite NEGATIVE Urine Bilirubin NEGATIVE Urine Urobilinogen 0.2 (NORMAL) Ur Leukocyte Esterase TRACE H Urine RBC 6-10 H Urine WBC 4-5 Ur Squamous Epith Cells MANY Squamous H Urine Bacteria Few Urine Casts 3-5 Course Granular Ur Microscopic Review INDICATED Urine Culture Comments NOT INDICATED PD MEDICAL DECISION MAKING - ED course ED course: History and physical is most consistent with uncomplicated low back pain. Because she is a diabetic some blood work screening was done as well as urinalysis. Urinalysis was contaminated but given the lack of white cells in it, I do not have a high suspicion for pyelonephritis. Her blood work is unremarkable. Departure - Departure Disposition: Home, Self Care Clinical Impression: Uncontrolled diabetes mellitus Qualifiers: Diabetes mellitus type: type 2 Glycemic state: with hyperglycemia Qualified Code(s): E11.65 - Type 2 diabetes mellitus with hyperglycemia Low back pain Qualifiers: Chronicity: acute Back pain laterality: left Sciatica presence: without sciatica Qualified Code(s): M54.5 - Low back pain Condition: Good Record reviewed to determine appropriate education?: Yes Instructions: ED Spasm Back No Trauma Prescriptions: Cyclobenzaprine [Flexeril] 10 mg PO TID PRN #20 tablet PRN Reason: Spasms Comments: As discussed, your examination and symptoms are most consistent with uncomplicated low back pain. Return for new worsening symptoms, or if you develop a fever. Or if pain is uncontrolled. Follow-up with your doctor, discuss improved glucose control.
[2019-06-09 21:24] LABS: BASOPHILS # (AUTO) 0.1 10^3/uL (0.0-0.1); BASOPHILS % (AUTO) 0.7 %; EOSINOPHILS # (AUTO) 0.3 10^3/uL (0.0-0.7); EOSINOPHILS % (AUTO) 3.6 %; HGB - HEMOGLOBIN 12.7 g/dL (12.0-16.0); LYMPHOCYTES # (AUTO) 3.1 10^3/uL (1.5-3.5); LYMPHOCYTES % (AUTO) 35.9 %; MEAN CORPUSCULAR HEMOGLOBIN 27.5 pg (27.0-31.0); MEAN CORPUSCULAR HGB CONC 31.3 g/dL (32.0-36.0); MEAN CORPUSCULAR VOLUME 87.9 fL (81.0-99.0); MEAN PLATELET VOLUME 11.6 fL (7.9-10.8); MONOCYTES # (AUTO) 0.6 10^3/uL (0.0-1.0); MONOCYTES % (AUTO) 7.5 %; NEUTROPHILS # (AUTO) 4.5 10^3/uL (1.5-6.6); NEUTROPHILS % (AUTO) 52.1 %; PLT - PLATELET COUNT 223 10^3/uL (130-450); RED BLOOD COUNT 4.62 10^6/uL (4.20-5.40); RED CELL DISTRIBUTION WIDTH 14.7 % (12.0-15.0); WHITE BLOOD COUNT 8.6 x10^3/uL (4.8-10.8)
[2019-06-09 21:27] LABS: ALBUMIN/GLOBULIN RATIO 1.1 (1.0-2.2); BILIRUBIN,TOTAL 0.5 mg/dL (0.2-1.0); CALCIUM 9.3 mg/dL (8.5-10.3); CREATININE 0.8 mg/dL (0.4-1.0); TOTAL PROTEIN 7.8 g/dL (6.7-8.2)
[2019-06-09 21:49] LABS: GLUCOSE, URINE (UA) NEGATIVE (NEGATIVE); KETONES,URINE (UA) 15 mg/dL (NEGATIVE); LEUKOCYTE ESTERASE, URINE TRACE (NEGATIVE); NITRITE,URINE NEGATIVE (NEGATIVE); OCCULT BLOOD,URINE LARGE (NEGATIVE); PROTEIN,URINE TRACE mg/dL (NEGATIVE); UROBILINOGEN,URINE 0.2 (NORMAL) E.U./dL (NORMAL)
[2019-06-09 21:58] LABS: BILIRUBIN,URINE NEGATIVE (NEGATIVE); CLARITY,URINE HAZY (CLEAR); ICTOTEST,URINE NEGATIVE
[2019-06-09 22:10] LABS: BACTERIA,URINE Few /HPF (None Seen); CASTS, URINE 3-5 Course Granular /LPF; SQUAMOUS EPITHELIAL CELL,UR MANY Squamous (<= Few)
[2019-06-09 22:24] VITALS: BP 121/76
== END 2019-06-09 22:22 | disposition home or self-care (01) ==
LOC: ED 20:18
DX: M54.5 Low back pain (principal); E11.65 Type 2 diabetes mellitus with hyperglycemia; Z79.84 Long term (current) use of oral hypoglycemic drugs
CPT/HCPCS: 36415; 80053; 81001; 83690; 85025; 99283; A9270; 81003; 87086

== ENCOUNTER 2021-04-15 16:06 | Outpatient (CLI) | payer MEDICARE, MEDICAID | END 2021-04-15 16:07 | disposition short-term general hospital (02) | LOC: EMS 16:06 | DX: R55 Syncope and collapse (principal) | CPT/HCPCS: A0425; A0427 ==

== ENCOUNTER 2023-10-16 20:32 | Emergency (ER) | payer MEDICARE, MEDICAID ==
[2023-10-16 20:54] VITALS: BP 156/79; O2SAT 98
[2023-10-16] MEDS ORDERED: methocarbamoL 500 MG TABLET PO STA (23:00)
--- NOTE | 2023-10-16 23:02 | ED Physician Documentation ---
History of Present Illness - Stated complaint Stated Complaint: L SIDE HIP PX - Chief complaint Chief Complaint: Ext Problem - History obtained from History obtained from: Patient - Additonal information Additional information: 53yF with pmh arthritis presents to the ED with L hip soreness for the past couple days, worse with twisting and bending over. also with intermittent tingling in L leg. 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 Derm: Skin cancer surgery - Present Medications Home Medications: Ambulatory Orders Medication Instructions Recorded Confirmed Gabapentin [Neurontin] 800 mg PO TID 11/09/15 09/13/17 Metformin HCl 1,000 mg PO BID 11/09/15 09/13/17 Canagliflozin [Invokana] 300 mg PO DAILY 10/06/16 09/13/17 Simvastatin 40 mg PO DAILY 10/06/16 09/13/17 Cholecalciferol (Vitamin D3) 5,000 mg PO DAILY 12/28/16 09/13/17 [Vitamin D3] lamoTRIgine [Lamotrigine] 200 mg PO DAILY 12/28/16 09/13/17 ARIPiprazole [Aripiprazole] 10 mg PO DAILY PM 09/13/17 09/13/17 Canagliflozin [Invokana] 300 mg PO DAILY 09/13/17 09/13/17 Multivitamin [Multivitamins] 1 tab PO DAILY 09/13/17 09/13/17 Prazosin HCl 2 mg PO DAILY 09/13/17 09/13/17 Tramadol HCl 50 mg PO Q6H PRN #25 tablet 01/26/18 dexAMETHasone [Decadron] 4 mg PO DAILY #5 tablet 01/26/18 methocarbamoL [Robaxin] 500 mg PO Q6H PRN #25 tablet 01/26/18 methocarbamoL [Robaxin] 500 mg PO Q6H #20 tablet 10/16/23 - Allergies Allergies/Adverse Reactions: Allergies Allergy/AdvReac Type Severity Reaction Status Date / Time peanut Allergy Anaphylaxis Verified 10/16/23 20:47 - Social History Does the pt smoke?: No Smoking Status: Never smoker Does the pt drink ETOH?: No Does the pt have substance abuse?: No - Immunizations Immunizations are current?: Yes - POLST Patient has POLST: No PD ED PE NORMAL - Vitals Vital signs reviewed: Yes - General General: Alert and oriented X 3, No acute distress, Well developed/nourished - HEENT HEENT: Atraumatic, PERRL, EOMI, Moist mucous membranes, Pharynx benign - Derm Derm: Normal color, Warm and dry - Extremities Extremities: No deformity, Other (L hip discomfort with rom. ambulatory without difficulty. ttp along muscle distribution. csm intact BL LE) Results - Vitals Vitals: Vital Signs - 24 hr 10/16/23 10/16/23 20:40 23:06 Temperature 36.6 C 36.4 C L Heart Rate 73 70 Respiratory 17 17 Rate Blood Pressure 156/79 H O2 Saturation 98 98 Oxygen O2 Source Room air PD Medical Decision Making - ED course ED course: 53yF p/w L hip pain that appears to follow muscle distribution, improving s/p oral robaxin. doubt traumatic injury given no history of such. rx sent to pharmacy . return precautions given. plan to f/u with pcp for referral to PT as needed. Departure - Departure Disposition: Home, Self Care Clinical Impression: Muscle strain Condition: Stable Instructions: Methocarbamol tablets Prescriptions: methocarbamoL [Robaxin] 500 mg PO Q6H #20 tablet Comments: You were seen in the emergency department for hip pain and found to have muscle spasm. Prescription was sent electronically to [facility]. Please follow-up with your primary care provider and return to the emergency department if you have any new or worsening symptoms or other concerns. Forms: PCP List Discharge Date/Time: 10/16/23 23:12
== END 2023-10-16 23:12 | disposition home or self-care (01) ==
LOC: ED 20:32
DX: S76.012A Strain of muscle, fascia and tendon of left hip, initial encounter (principal); X58.XXXA Exposure to other specified factors, initial encounter; E11.9 Type 2 diabetes mellitus without complications; Z79.84 Long term (current) use of oral hypoglycemic drugs
CPT/HCPCS: 99282; 99283; A9270